=== PATIENT | female | born 1945 ===

== ENCOUNTER 2024-12-20 13:25 | Outpatient (AMB) | payer MEDICARE, SELFPAY ==
--- NOTE | 2024-12-20 13:42 | A.OFFVIS_ITS ---
Intake Visit Reasons: AFTER MR Allergies No Known Allergies Allergy (Verified 10/26/24 16:14) Medication List - Last Reconciled 12/20/24 by Lolly Cruz MD acitretin 17.5 mg PO DAILY atorvastatin 10 mg PO DAILY carvedilol 12.5 mg PO BID losartan 100 mg PO DAILY HPI Comments Details: This is a 78-year-old woman with a history of hypertension and hyperlipidemia who has had 4 or 5 falls in the last 6 months.? She used to walk with a cane but kept falling, so she is now using a walker but had another fall last week while using the walker at home.? She generally tends to fall backwards.? It is not related to loss of consciousness, dizziness or lightheadedness.? The knees do not buckle.? She suddenly loses her balance and falls backwards.? It is not related to quick movements or changing direction.? She has no bladder control problems.? There is no numbness and tingling in the legs.? She's been seen in the emergency room a few times after a fall and had CAT scans.? She had 3 weeks of rehabilitation home health aide with PT and OT as well. Had a fall in the bedroom a month ago. [facility] Medical History (Updated 12/20/24 @ 13:56 by Lolly Cruz MD) Cervical myelopathy Cerebral microvascular disease Carpal tunnel syndrome Review of Systems Const Details: ?Sleep:? Difficulty getting to sleepdenies.? Difficulty maintaining sleepdenies?.? Urge to move legsdenies.? Teeth grindingdenies.? Shouting or Kicking during sleep denies.? Abnormal behavior during sleepdenies.? Excessive sleepdenies.? Snoring denies.? Daytime sleepinessdenies. ???General/Constitutional:? Change in appetitedenies.? Chillsdenies.? Fatiguedenies.? Feverdenies.? Weight gaindenies.? Weight lossdenies. ???Ophthalmologic:? Blurred visiondenies.? Diminished visual acuitydenies. ???ENT:? Stuffinessdenies.? Decreased hearingdenies.? Dry mouthdenies.? Ear paindenies.? Nosebleeddenies.? Ringing in the earsdenies.? Sinus paindenies.? Sore throat denies.? Swollen glandsdenies. ???Endocrine:? Cold intolerancedenies.? Excessive thirstdenies.? Frequent urinationdenies.? Heat intolerancedenies. ???Respiratory:? Shortness of breathdenies.? Chest paindenies.? Coughdenies. ???Breast:? Breast lumpdenies.? Nipple dischargedenies. ???Cardiovascular:? Chest pain at restdenies.? Chest pain with exertiondenies.? Claudicationdenies .? Dizzinessdenies.? Fluid accumulation in the legsdenies.? Irregular heartbeat denies.? Palpitationsdenies. ???Gastrointestinal:? Abdominal paindenies.? Constipationdenies.? Diarrheadenies.? Difficulty swallowingdenies.? Heartburndenies.? Nauseadenies.? Rectal bleedingdenies. ???Hematology:? Easy bruisingdenies.? Prolonged bleedingdenies. ???Genitourinary:? Frequent urinationdenies.? Urgencydenies.? Incontinencedenies.? Erectile Dysfunctiondenies. ???Musculoskeletal:? Neck paindenies.? Back paindenies.? Muscle achesdenies.? Painful jointsdenies.? Sciaticadenies.? Weaknessdenies. ???Podiatric:? Difficulty walkingdenies.? Foot numbnessdenies. ???Neurologic:? Difficulty swallowingdenies.? Balance difficultydenies.? Coordinationnormal.? Difficulty speakingdenies.? Dizzinessdenies.? Faintingdenies.? Gait abnormality admits.? Headachedenies.? Loss of strengthdenies.? Loss of use of extremity denies.? Low back paindenies.? Memory lossdenies.? Seizuresdenies.? Ticsdenies.? Tingling/Numbnessdenies.? Transient loss of visiondenies.? Tremordenies. ???Psychiatric:? Anxietydenies.? Auditory/visual hallucinationsdenies.? Delusionsdenies.? Depressed mooddenies.? Stressorsdenies.? Substance abusedenies.? Suicidal thoughtsdenies. Physical Exam Neuro Other: Neurological: Abnormal neurological findings:??bilateral hyperreflexia in the lower extremities with equivocal extensor plantar responses Walks with a walker very slowly. Difficulty with eye movements, particularly left lateral gaze and saccades to the left.?Mental Status:??alert and oriented X 3,?Normal attention, orientation, memory and affect.?Cranial Nerves:??Pupils are equal, round and reactive to light. Fundoscopy shows normal disc bilaterally. External ocular movements are impaired as described above.?Visual escoto are full, no ptosis. Face is symmetrical, no facial weakness or droop. Facial sensations are normal. Tongue protrudes in midline. Palate elevates symmetrically. Shoulder shrugging is normal..?Motor Examination:??Normal muscle tone, bulk and strength,?No atrophy or fasciculations,?No drift of the extended upper extremities,?Deep tendon reflexes are 3+?,?Plantars are equivocal extensor.?Motor Strength:?Proximal Muscles (out of 5):5Distal Muscles (out of 5):5Neck Flexors (out of 5):5Neck Extensors (out of 5):5Deltoid (out of 5):5Biceps (out of 5):5Triceps (out of 5): 5Serratus Anterior (out of 5):5Wrist Extensors (out of 5):5APB (out of 5):5 Finger Spread (out of 5):5Ileopsoas (out of 5):5Quadriceps (out of 5):5 Hamstrings (out of 5):5Tibialis Anterior (out of 5):5Peronei (out of 5):5EDB (out of 5):5Gastrocnemius (out of 5):5Straight Leg Raising:??90 degrees.?Sensory Exam:??Normal light touch, temperature, pinprick, vibration and joint-position sensations?,?Rhomberg sign is absent.?Coordination:??no ataxia,?no titubation,?uunyca-ha-viww, tcob-esek-ubww test and rapid alternating movements were normal.?Gait Exam:??as above.?Cerebellar Signs:??Gekhdf-rb-xdxr and jspp-ma-rgol is normal,?no dysdiadochokinesia?.?Extrapyramidal System:??No tremor, rigidity with normal facial expressions,?No bradykinesia, no bradyphrenia. Normal arm swing and posture. No propulsion or retropulsion.?Speech:??Normal,?no dysphasia or dysarthria..? Mini Mental Status Exam: Level of Consciousness:??Alert.?Orientation:??Knows correct year, month, date, day and season,?Knows correct city, county and state. Knows correct location and floor.?Registration:??Able to register 3 objects.?Attention:??Serial 7's performed accurately.?Recall:??Able to recall 3 out of 3 objects.?Language:??Normal spontaneous speech, fluency, repetition,naming, comprehension, reading and writing.?Total Score:??30/30.? General Examination: GENERAL APPEARANCE:??normal,?in no acute distress.?HEAD:??normocephalic,?atraumatic.?EYES:??sclera non- icteric,?conjunctiva clear.?EARS:??auditory canal clear,?tympanic membrane intact, clear.?NOSE:??no lesions.?ORAL CAVITY:??gums normal,?mucosa moist,?no lesions.?THROAT:??clear.?NECK/THYROID:??no cervical lymphadenopathy,?thyroid normal,?neck supple, full range of motion,?no carotid bruit.?SKIN:??no rashes,?no significant birthmarks.?HEART:??S1, S2 normal,?no murmurs.?LUNGS:??clear anteriorly and posteriorly.?CHEST:??no gross rib deformity,?clear to auscultation.?BACK:??normal exam of spine.?EXTREMITIES:??no edema.?PERIPHERAL PULSES:??normal.?PSYCH:??alert, oriented,?cognitive function intact,?cooperative with exam.? Assessment & Plan Assessment & Plan (1) Cerebral microvascular disease: Comment: 02/03/24 MRI brain: Small chronic bilateral lacunar strokes in the cerebellum. Mild supratentorial white matter microvascular disease 11/29/2024 MRI of the cervical spine shows tcsb-pn-vvdnchks canal stenosis at C5-6-7 without clear cord compression. There is also facet hypertrophy with foraminal encroachment at C3-4 and C7-T1 Code(s): I67.89 - Other cerebrovascular disease Category: Medical (2) Cervical myelopathy: Comment: ? Multisystem atrophy Code(s): G95.9 - Disease of spinal cord, unspecified Category: Medical Plan Exercises for marching and gait and balance Coding Level of Care Code Est Pt Level 4 (21794) Diagnoses Cerebral microvascular disease I67.89 Cervical myelopathy G95.9
--- OUTSIDE RECORDS SUMMARY | 2024-12-20 14:17 | XMS_ITS | Encounter Summary ---
Author Organization [facility] Address [address] [place] [address] Care Team Providers Care Survey Research Teacher Name Role Phone Hay Fan MD Primary Care Provider [phone] Encounter Details Date Type Department Care Team (Late st Contact Info) Description 09/23/2024 Lab Requisition [facility] - Main Lab [address] [facility] [place] [address] Justyn Renee MD [address] [place] [address] Essential (primary) hypertension Social History Tobacco Use Types Packs/Day Years Used Date Smoking Tobacco: Never Assessed Comments Unknown Sex and Gender Information Value Date Recorded Sex Assigned at Not on file Legal Sex Female 11:08 AM EST Gender Identity Not on file Sexual Orientation Not on file documented as of this encounter Plan of Treatment Not on file documented as of this encounter Visit Diagnoses Diagnosis Essential (primary) hypertension Unspecified essential hypertension documented in this encounter Care Teams Survey Research Teacher Relationship Specialty Start Date End Date Hay Fan MD [address] [place] [address] PCP - General Internal Medicine 12/08/17 documented as of this encounter
--- OUTSIDE RECORDS SUMMARY | 2024-12-20 14:17 | XMS_ITS | Encounter Summary ---
Author Organization [facility] Address [address] [place] [address] Care Team Providers Care Cloak Room Attendant Name Role Phone Hay Fan MD Primary Care Provider [phone] Encounter Details Date Type Department Care Team (Late st Contact Info) Description 08/29/2024 Lab Requisition [facility] - Main Lab [address] [facility] [address] Justyn Renee MD [address] [place] [address] Essential (primary) hypertension; Hyperkalemia Social History Tobacco Use Types Packs/Day Years Used Date Smoking Tobacco: Never Assessed Comments Unknown Sex and Gender Information Value Date Recorded Sex Assigned at Not on file Legal Sex Female 11:08 AM EST Gender Identity Not on file Sexual Orientation Not on file documented as of this encounter Plan of Treatment Not on file documented as of this encounter Procedures Procedure Name Priority Date/Time Associated Diagnosis Comments BASIC METABOLIC PANEL Routine 08/30/2024 6:12 AM EDT Essential (primary) hypertension Hyperkalemia documented in this encounter Results * (ABNORMAL) Basic metabolic panel (08/30/2024 6:12 AM EDT) Sodium 127(L) 133 - 145 mmol/L LAB CHEMISTRY METHOD 08/30/2024 10:15 AM EDT [facility] Potassium 4.1 3.5 - 5.5 mmol/L LAB CHEMISTRY METHOD 08/30/2024 10:15 AM EDT [facility] Chloride 95(L) 96 - 110 mmol/L LAB CHEMISTRY METHOD 08/30/2024 10:15 AM [facility] CO2 24 21 - 32 mmol/L LAB CHEMISTRY METHOD 08/30/2024 10:15 AM [facility] Anion Gap 8 3 - 11 LAB CHEMISTRY METHOD 08/30/2024 10:15 AM [facility] Glucose 81 70 - 100 mg/dL LAB CHEMISTRY METHOD 08/30/2024 10:15 AM [facility] BUN 23 5 - 25 mg/dL LAB CHEMISTRY METHOD 08/30/2024 10:15 AM [facility] Creatinine 0.67 0.50 - 1.10 mg/dL LAB CHEMISTRY METHOD 08/30/2024 10:15 AM [facility] eGFR 88 >=60 mL/min/1. 73m2 LAB CHEMISTRY METHOD 08/30/2024 10:15 AM [facility] Comment:Calculation based on the Chronic Kidney Disease Epidemiology Collaboration (CKD-EPI) equation refit without adjustment for race. BUN/Creatinine Ratio 34.3 LAB CHEMISTRY METHOD 08/30/2024 10:15 AM [facility] Calcium 9.5 8.5 - 10.5 mg/dL LAB CHEMISTRY METHOD 08/30/2024 10:15 AM [facility] Blood Venous blood specimen / Unknown Venipuncture / Unknown 08/30/2024 6:12 AM EDT 08/30/2024 9:28 AM EDT us Justyn Renee MD LAB BLOOD ORDERABLES Final Result [facility] [address] [place] [address], documented in this encounter Visit Diagnoses Diagnosis Essential (primary) hypertension Unspecified essential hypertension Hyperkalemia Hyperpotassemia documented in this encounter Care Teams Cloak Room Attendant Relationship Specialty Start Date End Date Hay Fan MD [address] [place] [address] PCP - General Internal Medicine 12/08/17 documented as of this encounter
--- OUTSIDE RECORDS SUMMARY | 2024-12-20 14:17 | XMS_ITS | Encounter Summary ---
Author Organization [facility] Address [address] [place] [address] Care Team Providers Care Pallet Rectifier Name Role Phone Hay Fan MD Primary Care Provider Encounter Details Date Type Department Care Team (Late st Contact Info) Description 09/18/[address] [facility] - Main Lab [address] [place] [address] Justyn Renee MD [address] [place] [address] Essential (primary) hypertension Social History Tobacco Use [...] Procedure Name Priority Date/Time Associated Diagnosis Comments COMPLETE BLOOD COUNT Routine 09/19/2024 7:18 AM EDT Essential (primary) hypertension BASIC METABOLIC PANEL Routine 09/19/2024 7:18 AM EDT Essential (primary) hypertension documented in this encounter Results * Basic metabolic panel (09/19/2024 7:18 AM EDT) Sodium 136 133 - 145 mmol/L LAB CHEMISTRY METHOD 09/19/2024 10:[address] [facility] Potassium 4.6 3.5 - 5.5 mmol/L LAB CHEMISTRY METHOD 09/19/2024 10:[address] [facility] Chloride 106 96 - 110 mmol/L LAB CHEMISTRY METHOD 09/19/2024 10:50 AM [facility] CO2 24 21 - 32 mmol/L LAB CHEMISTRY METHOD 09/19/2024 10:50 AM [facility] Anion Gap 6 3 - 11 LAB CHEMISTRY METHOD 09/19/2024 10:50 AM [facility] Glucose 79 70 - 100 mg/dL LAB CHEMISTRY METHOD 09/19/2024 10:50 AM [facility] BUN 20 5 - 25 mg/dL LAB CHEMISTRY METHOD 09/19/2024 10:50 AM [facility] Creatinine 0.69 0.50 - 1.10 mg/dL LAB CHEMISTRY METHOD 09/19/2024 10:50 AM [facility] eGFR 88 >=60 mL/min/1. 73m2 LAB CHEMISTRY METHOD 09/19/2024 10:50 AM [facility] Comment:Calculation based on the Chronic Kidney Disease Epidemiology Collaboration (CKD-EPI) equation refit without adjustment for race. BUN/Creatinine Ratio 29.0 LAB CHEMISTRY METHOD 09/19/2024 10:50 AM [facility] Calcium 8.8 8.5 - 10.5 mg/dL LAB CHEMISTRY METHOD 09/19/2024 10:50 AM [facility] Blood Venous blood specimen / Unknown Venipuncture / Unknown 09/19/2024 7:18 AM EDT 09/19/2024 9:46 AM EDT us Justyn Renee MD LAB BLOOD ORDERABLES Final Result [facility] [address] [place] [address], * (ABNORMAL) Complete blood count (09/19/2024 7:18 AM EDT) WBC 8.5 4.8 - 10.8 K/mcL LAB HEMETOLOGY METHOD 09/19/2024 10:18 AM [facility] RBC 2.90(L) 3.80 - 4.80 M/mcL LAB HEMETOLOGY METHOD 09/19/2024 10:18 AM [facility] Hemoglobin 9.4(L) 11.5 - 16.0 g/dL LAB HEMETOLOGY METHOD 09/19/2024 10:18 AM [facility] Hematocrit 27.8(L) 35.0 - 47.0 % LAB HEMETOLOGY METHOD 09/19/2024 10:18 AM [facility] MCV 95.5 79.0 - 98.0 FL LAB HEMETOLOGY METHOD 09/19/2024 10:18 AM [facility] MCH 32.3(H) 27.0 - 32.0 pcg LAB HEMETOLOGY METHOD 09/19/2024 10:18 AM [facility] MCHC 33.8 32.0 - 37.0 g/dL LAB HEMETOLOGY METHOD 09/19/2024 10:18 AM [facility] RDW 12.0 11.0 - 15.0 % LAB HEMETOLOGY METHOD 09/19/2024 10:18 AM [facility] Platelets 429(H) 130 - 400 K/mcL LAB HEMETOLOGY METHOD 09/19/2024 10:18 AM [facility] MPV 8.8 7.0 - 11.0 FL LAB HEMETOLOGY METHOD 09/19/2024 10:18 AM [facility] NRBC 0.0 <1.0 % LAB HEMETOLOGY METHOD 09/19/2024 10:18 AM [facility] NRBC Absolute 0.00 <0.10 K/mcL LAB HEMETOLOGY METHOD 09/19/2024 10:[address] [facility] Blood Venous blood specimen / Unknown Venipuncture / Unknown 09/19/2024 7:18 AM EDT 09/19/2024 9:46 AM EDT us Justyn Renee MD LAB BLOOD ORDERABLES Final Result [facility] [address] [place] [address], documented in this encounter Visit Diagnoses Diagnosis Essential (primary) hypertension Unspecified essential hypertension documented in this encounter Care Teams Pallet Rectifier Relationship Specialty Start Date End Date Hay Fan MD [address] [facility] [place] [address] PCP - General Internal Medicine 12/08/17 documented as of this encounter
--- OUTSIDE RECORDS SUMMARY | 2024-12-20 14:17 | XMS_ITS | Encounter Summary ---
Author Organization [facility] Address [address] [place] [address] Care Team Providers Care Soil Expert Name Role Phone Hay Fan MD Primary Care Provider [phone] Encounter Details Date Type Department Care Team (Late st Contact Info) Description 08/24/2024 Lab Requisition [facility] - Main Lab [address] [facility] [place] [address] Justyn Renee MD [address] [place] [address] Essential (primary) hypertension; Repeated falls Social History Tobacco Use Types Packs/Day Years [...] Associated Diagnosis Comments COMPLETE BLOOD COUNT Routine 08/24/2024 9:05 AM EDT Essential (primary) hypertension Repeated falls THYROID STIMULATING HORMONE Routine 08/24/2024 9:05 AM EDT Essential (primary) hypertension Repeated falls FOLATE Routine 08/24/2024 9:05 AM EDT Essential (primary) hypertension Repeated falls VITAMIN B12 Routine 08/24/2024 9:05 AM EDT Essential (primary) hypertension Repeated falls BASIC METABOLIC PANEL Routine 08/24/2024 9:05 AM EDT Essential (primary) hypertension Repeated falls documented in this encounter Results * (ABNORMAL) Vitamin B12 (08/24/2024 9:05 AM EDT) Vitamin B-12 1,550(H) 250 - 900 pcg/mL LAB CHEMISTRY METHOD 08/24/2024 1:11 PM EDT [facility] Blood Venous blood specimen / Unknown Venipuncture / Unknown 08/24/2024 9:05 AM EDT 08/24/2024 11:44 AM EDT us Justyn Renee MD LAB BLOOD ORDERABLES Final Result [facility] [address] [place] [address], [place] [phone] * (ABNORMAL) Folate (08/24/2024 9:05 AM EDT) [facility] Folate >20.0(H) 2.8 - 17.0 ng/ml LAB CHEMISTRY METHOD 08/24/2024 1:11 PM EDT [facility] Blood Venous blood specimen / Unknown Venipuncture / Unknown 08/24/2024 9:05 AM EDT 08/24/2024 11:44 AM EDT us Justyn Renee MD LAB BLOOD ORDERABLES Final Result [facility] [address] [place] [address], [place] [phone] * Thyroid stimulating hormone (08/24/2024 9:05 AM EDT) Pathologist [facility] TSH 1.46 0.40 - 4.00 mcIU/mL LAB CHEMISTRY METHOD 08/24/2024 1:36 PM EDT [facility] Blood Venous blood specimen / Unknown Venipuncture / Unknown 08/24/2024 9:05 AM EDT 08/24/2024 11:44 AM EDT us Justyn Renee MD LAB BLOOD ORDERABLES Final Result [facility] [address] [place] [address], * (ABNORMAL) Basic metabolic panel (08/24/2024 9:05 AM EDT) Sodium 123(L) 133 - 145 mmol/L LAB CHEMISTRY METHOD 08/24/2024 12:48 PM EDT [facility] Potassium 3.6 3.5 - 5.5 mmol/L LAB CHEMISTRY METHOD 08/24/2024 12:[address] [facility] Chloride 87(L) 96 - 110 mmol/L LAB CHEMISTRY METHOD 08/24/2024 12:[address] [facility] CO2 26 21 - 32 mmol/L LAB CHEMISTRY METHOD 08/24/2024 12:[address] [facility] Anion Gap 10 3 - 11 LAB CHEMISTRY METHOD 08/24/2024 12:[address] [facility] Glucose 206(H) 70 - 100 mg/dL LAB CHEMISTRY METHOD 08/24/2024 12:[address] [facility] BUN 20 5 - 25 mg/dL LAB CHEMISTRY METHOD 08/24/2024 12:[address] [facility] Creatinine 0.78 0.50 - 1.10 mg/dL LAB CHEMISTRY METHOD 08/24/2024 12:[address] [facility] eGFR 77 >=60 mL/min/1. 73m2 LAB CHEMISTRY METHOD 08/24/2024 12:[address] [facility] Comment:Calculation based on the Chronic Kidney Disease Epidemiology Collaboration (CKD-EPI) equation refit without adjustment for race. BUN/Creatinine Ratio 25.6 LAB CHEMISTRY METHOD 08/24/2024 12:[address] [facility] Calcium 9.0 8.5 - 10.5 mg/dL LAB CHEMISTRY METHOD 08/24/2024 12:48 PM EDT [facility] Blood Venous blood specimen / Unknown Venipuncture / Unknown 08/24/2024 9:05 AM EDT 08/24/2024 11:44 AM EDT us Justyn Renee MD LAB BLOOD ORDERABLES Final Result [facility] [address] [place] [address], [place] [phone] * (ABNORMAL) Complete blood count (08/24/2024 9:05 AM EDT) WBC 10.1 4.8 - 10.8 K/mcL LAB HEMETOLOGY METHOD 08/24/2024 12:[address] [facility] RBC 3.40(L) 3.80 - 4.80 M/mcL LAB HEMETOLOGY METHOD 08/24/2024 12:[address] [facility] Hemoglobin 10.9(L) 11.5 - 16.0 g/dL LAB HEMETOLOGY METHOD 08/24/2024 12:[address] [facility] Hematocrit 30.8(L) 35.0 - 47.0 % LAB HEMETOLOGY METHOD 08/24/2024 12:[address] [facility] MCV 91.7 79.0 - 98.0 FL LAB HEMETOLOGY METHOD 08/24/2024 12:[address] [facility] MCH 32.4(H) 27.0 - 32.0 pcg LAB HEMETOLOGY METHOD 08/24/2024 12:[address] [facility] MCHC 35.4 32.0 - 37.0 g/dL LAB HEMETOLOGY METHOD 08/24/2024 12:[address] [facility] RDW 11.6 11.0 - 15.0 % LAB HEMETOLOGY METHOD 08/24/2024 12:23 PM EDT [facility] Platelets 395 130 - 400 K/mcL LAB HEMETOLOGY METHOD 08/24/2024 12:23 PM EDT [facility] MPV 9.3 7.0 - 11.0 FL LAB HEMETOLOGY METHOD 08/24/2024 12:23 PM EDT [facility] NRBC 0.0 <1.0 % LAB HEMETOLOGY METHOD 08/24/2024 12:23 PM EDT [facility] NRBC Absolute 0.00 <0.10 K/mcL [facility] 08/24/2024 12:23 PM EDT [facility] Blood Venous blood specimen / Unknown Venipuncture / Unknown 08/24/2024 9:05 AM EDT 08/24/2024 11:44 AM EDT us Justyn Renee MD LAB BLOOD ORDERABLES Final Result [facility] [address] [place] [address], documented in this encounter Visit Diagnoses Diagnosis Essential (primary) hypertension Unspecified essential hypertension Repeated falls documented in this encounter Care Teams Soil Expert Relationship Specialty Start Date End Date Hay Fan MD [address] [place] [address] PCP - General Internal Medicine 12/08/17 documented as of this encounter
--- OUTSIDE RECORDS SUMMARY | 2024-12-20 14:17 | XMS_ITS | Encounter Summary ---
Author Organization [facility] Address [address] [place] [address] Care Team Providers Care Double Head Machine Operator Name Role Phone Hay Fan MD Primary Care Provider [phone] Encounter Details Date Type Department Care Team (Late st Contact Info) Description 08/31/2024 Lab Requisition [facility] - Main Lab [address] [facility] [employer] [place] [address] Justyn Renee MD [address] [place] [id number] Social History Tobacco Use Types Packs/Day Years Used Date Smoking Tobacco: Never Assessed Comments Unknown Sex and Gender Information Value Date Recorded Sex Assigned at Not on file Legal Sex Female 11:08 AM EST Gender Identity Not on file Sexual Orientation Not on file documented as of this encounter Plan of Treatment Not on file documented as of this encounter Visit Diagnoses Not on filedocumented in this encounter Care Teams Double Head Machine Operator Relationship Specialty Start Date End Date Hay Fan MD [address] [place] [address] PCP - General Internal Medicine 12/08/17 documented as of this encounter
--- OUTSIDE RECORDS SUMMARY | 2024-12-20 14:17 | XMS_ITS | Encounter Summary ---
Author Organization [facility] Address [address] [place] [address] Care Team Providers Care Soft Work Wrapper Layer And Examiner Name Role Phone Hay Fan MD Primary Care Provider [phone] Encounter Details Date Type Department Care Team (Late st Contact Info) Description 09/12/2024 Lab Requisition [facility] - Main Lab [address] [place] [address] Justyn Renee MD [address] [place] [address] Hypo-osmolality and hyponatremia Social History Tobacco Use Types Packs/Day Years [...] Associated Diagnosis Comments BASIC METABOLIC PANEL Routine 09/13/2024 6:41 AM EDT Hypo-osmolality and hyponatremia documented in this encounter Results * (ABNORMAL) Basic metabolic panel (09/13/2024 6:41 AM EDT) Sodium 125(L) 133 - 145 mmol/L LAB CHEMISTRY METHOD 09/13/2024 9:51 AM EDT [facility] Potassium 4.2 3.5 - 5.5 mmol/L LAB CHEMISTRY METHOD 09/13/2024 9:51 AM EDT [facility] LAB Chloride 93(L) 96 - 110 mmol/L LAB CHEMISTRY METHOD 09/13/2024 9:51 AM [facility] LAB CO2 24 21 - 32 mmol/L LAB CHEMISTRY METHOD 09/13/2024 9:51 AM [facility] LAB Anion Gap 8 3 - 11 LAB CHEMISTRY METHOD 09/13/2024 9:51 AM [facility] LAB Glucose 85 70 - 100 mg/dL LAB CHEMISTRY METHOD 09/13/2024 9:51 AM [facility] BUN 25 5 - 25 mg/dL LAB CHEMISTRY METHOD 09/13/2024 9:51 AM [facility] LAB Creatinine 0.91 0.50 - 1.10 mg/dL LAB CHEMISTRY METHOD 09/13/2024 9:51 AM [facility] LAB eGFR 64 >=60 mL/min/1. 73m2 LAB CHEMISTRY METHOD 09/13/2024 9:51 AM [facility] LAB Comment:Calculation based on the Chronic Kidney Disease Epidemiology Collaboration (CKD-EPI) equation refit without adjustment for race. BUN/Creatinine Ratio 27.5 LAB CHEMISTRY METHOD 09/13/2024 9:51 AM [facility] Calcium 8.9 8.5 - 10.5 mg/dL LAB CHEMISTRY METHOD 09/13/2024 9:51 AM [facility] LAB Blood Venous blood specimen / Unknown Venipuncture / Unknown 09/13/2024 6:41 AM EDT 09/13/2024 8:08 AM EDT us Justyn Renee MD LAB BLOOD ORDERABLES Final Result [facility] LAB [address] [place] [address], documented in this encounter Visit Diagnoses Diagnosis Hypo-osmolality and hyponatremia documented in this encounter Care Teams Soft Work Wrapper Layer And Examiner Relationship Specialty Start Date End Date Hay Fan MD [address] [place] [address] PCP - General Internal Medicine 12/08/17 documented as of this encounter
--- OUTSIDE RECORDS SUMMARY | 2024-12-20 14:17 | XMS_ITS | Encounter Summary ---
Author Organization [facility] Address [address] [place] [address] Care Team Providers Care Box Chipper Name Role Phone Hay Fan MD Primary Care Provider [phone] Encounter Details Date Type Department Care Team (Late st Contact Info) Description 08/31/2024 Lab Requisition [facility] - Main Lab [address] [place] [address] Justyn Renee MD [address] [place] [address] Hypo-osmolality and hyponatremia Social History Tobacco Use [...] Associated Diagnosis Comments COMPLETE BLOOD COUNT Routine 09/01/2024 7:27 AM EDT Hypo-osmolality and hyponatremia BASIC METABOLIC PANEL Routine 09/01/2024 7:27 AM EDT Hypo-osmolality and hyponatremia documented in this encounter Results * (ABNORMAL) Complete blood count (09/01/2024 7:27 AM EDT) WBC 10.2 4.8 - 10.8 K/[facility] LAB HEMETOLOGY METHOD 09/01/2024 10:31 AM EDT [facility] RBC 3.40(L) 3.80 - 4.80 M/[facility] LAB HEMETOLOGY METHOD 09/01/2024 10:31 AM [facility] LAB Hemoglobin 10.9(L) 11.5 - 16.0 g/dL LAB HEMETOLOGY METHOD 09/01/2024 10:31 AM [facility] LAB Hematocrit 31.9(L) 35.0 - 47.0 % LAB HEMETOLOGY METHOD 09/01/2024 10:31 AM [facility] LAB MCV 93.5 79.0 - 98.0 FL LAB HEMETOLOGY METHOD 09/01/2024 10:31 AM [facility] LAB MCH 32.0 27.0 - 32.0 pcg LAB HEMETOLOGY METHOD 09/01/2024 10:31 AM [facility] LAB MCHC 34.2 32.0 - 37.0 g/dL LAB HEMETOLOGY METHOD 09/01/2024 10:31 AM [facility] LAB RDW 11.9 11.0 - 15.0 % LAB HEMETOLOGY METHOD 09/01/2024 10:31 AM [facility] LAB Platelets 550(H) 130 - 400 K/mcL LAB HEMETOLOGY METHOD 09/01/2024 10:31 AM [facility] LAB MPV 9.1 7.0 - 11.0 FL LAB HEMETOLOGY METHOD 09/01/2024 10:31 AM [facility] LAB NRBC 0.0 <1.0 % LAB HEMETOLOGY METHOD 09/01/2024 10:31 AM [facility] LAB NRBC Absolute 0.00 <0.10 K/mcL LAB HEMETOLOGY METHOD 09/01/2024 10:31 AM [facility] LAB Blood Venous blood specimen / Unknown Venipuncture / Unknown 09/01/2024 7:27 AM EDT 09/01/2024 10:18 AM EDT us Justyn B Jagadeesan MD LAB BLOOD ORDERABLES Final Result [facility] [address] [place] [address], * (ABNORMAL) Basic metabolic panel (09/01/2024 7:27 AM EDT) Sodium 128(L) 133 - 145 mmol/L LAB CHEMISTRY METHOD 09/01/2024 11:24 AM [facility] Potassium 4.5 3.5 - 5.5 mmol/L LAB CHEMISTRY METHOD 09/01/2024 11:24 AM [facility] LAB Chloride 97 96 - 110 mmol/L LAB CHEMISTRY METHOD 09/01/2024 11:24 AM [facility] CO2 26 21 - 32 mmol/L LAB CHEMISTRY METHOD 09/01/2024 11:24 AM [facility] LAB Anion Gap 5 3 - 11 LAB CHEMISTRY METHOD 09/01/2024 11:24 AM [facility] Glucose 96 70 - 100 mg/dL LAB CHEMISTRY METHOD 09/01/2024 11:24 AM [facility] BUN 28(H) 5 - 25 mg/dL LAB CHEMISTRY METHOD 09/01/2024 11:24 AM [facility] Creatinine 0.70 0.50 - 1.10 mg/dL LAB CHEMISTRY METHOD 09/01/2024 11:24 AM [facility] LAB eGFR 88 >=60 mL/min/1. 73m2 LAB CHEMISTRY METHOD 09/01/2024 11:24 AM [facility] LAB Comment:Calculation based on the Chronic Kidney Disease Epidemiology Collaboration (CKD-EPI) equation refit without adjustment for race. BUN/Creatinine Ratio 40.0 LAB CHEMISTRY METHOD 09/01/2024 11:24 AM [facility] Calcium 10.0 8.5 - 10.5 mg/dL LAB CHEMISTRY METHOD 09/01/2024 11:24 AM EDT [facility] Blood Venous blood specimen / Unknown Venipuncture / Unknown 09/01/2024 7:27 AM EDT 09/01/2024 10:15 AM EDT us Justyn Renee MD LAB BLOOD ORDERABLES Final Result [facility] [address] [place] [address], documented in this encounter Visit Diagnoses Diagnosis Hypo-osmolality and hyponatremia documented in this encounter Care Teams Box Chipper Relationship Specialty Start Date End Date Hay Fan [facility] [address] [facility] [address] PCP - General Internal Medicine 12/08/17 documented as of this encounter
--- OUTSIDE RECORDS SUMMARY | 2024-12-20 14:17 | XMS_ITS | Encounter Summary ---
Author Organization [facility] Address [address] [place] [address] Care Team Providers Care Teacher Physically Impaired Name Role Phone Hay Fan MD Primary Care Provider Encounter Details Date Type Department Care Team (Late st Contact Info) Description 08/27/2024 Lab Requisition [facility] Lab [address] [place] [address] Justyn Renee MD [address] [place] [address] Essential (primary) hypertension Social History Tobacco Use [...] Associated Diagnosis Comments COMPLETE BLOOD COUNT Routine 08/28/2024 7:34 AM EDT Essential (primary) hypertension BASIC METABOLIC PANEL Routine 08/28/2024 7:34 AM EDT Essential (primary) hypertension documented in this encounter Results * (ABNORMAL) Basic metabolic panel (08/28/2024 7:34 AM EDT) Sodium 126(L) 133 - 145 mmol/L LAB CHEMISTRY METHOD 08/28/2024 11:18 AM EDT [facility] Potassium 3.7 3.5 - 5.5 mmol/L LAB CHEMISTRY METHOD 08/28/2024 11:18 AM EDT [facility] Chloride 92(L) 96 - 110 mmol/L LAB CHEMISTRY METHOD 08/28/2024 11:18 AM EDT [facility] CO2 23 21 - 32 mmol/L LAB CHEMISTRY METHOD 08/28/2024 11:18 AM [facility] LAB Anion Gap 11 3 - 11 LAB CHEMISTRY METHOD 08/28/2024 11:18 AM [facility] LAB Glucose 89 70 - 100 mg/dL LAB CHEMISTRY METHOD 08/28/2024 11:18 AM [facility] BUN 18 5 - 25 mg/dL LAB CHEMISTRY METHOD 08/28/2024 11:18 AM [facility] Creatinine 0.57 0.50 - 1.10 mg/dL LAB CHEMISTRY METHOD 08/28/2024 11:18 AM [facility] LAB eGFR 92 >=60 mL/min/1. 73m2 LAB CHEMISTRY METHOD 08/28/2024 11:18 AM [facility] LAB Comment:Calculation based on the Chronic Kidney Disease Epidemiology Collaboration (CKD-EPI) equation refit without adjustment for race. BUN/Creatinine Ratio 31.6 LAB CHEMISTRY METHOD 08/28/2024 11:18 AM [facility] LAB Calcium 9.1 8.5 - 10.5 mg/dL LAB CHEMISTRY METHOD 08/28/2024 11:18 AM [facility] Blood Venous blood specimen / Unknown Venipuncture / Unknown 08/28/2024 7:34 AM EDT 08/28/2024 10:32 AM EDT us Justyn Renee MD LAB BLOOD ORDERABLES Final Result [facility] [address] [place] [address], * (ABNORMAL) Complete blood count (08/28/2024 7:34 AM EDT) WBC 10.8 4.8 - 10.8 K/mcL LAB HEMETOLOGY METHOD 08/28/2024 10:55 AM [facility] LAB RBC 3.00(L) 3.80 - 4.80 M/mcL LAB HEMETOLOGY METHOD 08/28/2024 10:55 AM [facility] Hemoglobin 9.5(L) 11.5 - 16.0 g/dL LAB HEMETOLOGY METHOD 08/28/2024 10:55 AM [facility] LAB Hematocrit 26.8(L) 35.0 - 47.0 % LAB HEMETOLOGY METHOD 08/28/2024 10:55 AM [facility] LAB MCV 90.8 79.0 - 98.0 FL LAB HEMETOLOGY METHOD 08/28/2024 10:55 AM [facility] LAB MCH 32.2(H) 27.0 - 32.0 pcg LAB HEMETOLOGY METHOD 08/28/2024 10:55 AM [facility] LAB MCHC 35.4 32.0 - 37.0 g/dL LAB HEMETOLOGY METHOD 08/28/2024 10:55 AM [facility] LAB RDW 11.6 11.0 - 15.0 % LAB HEMETOLOGY METHOD 08/28/2024 10:55 AM [facility] LAB Platelets 420(H) 130 - 400 K/mcL LAB HEMETOLOGY METHOD 08/28/2024 10:55 AM [facility] LAB MPV 9.4 7.0 - 11.0 FL LAB HEMETOLOGY METHOD 08/28/2024 10:55 AM [facility] LAB NRBC 0.0 <1.0 % LAB HEMETOLOGY METHOD 08/28/2024 10:55 AM [facility] LAB NRBC Absolute 0.00 <0.10 K/mcL LAB HEMETOLOGY METHOD 08/28/2024 10:55 AM EDT [facility] Blood Venous blood specimen / Unknown Venipuncture / Unknown 08/28/2024 7:34 AM EDT 08/28/2024 10:32 AM EDT us Justyn Renee MD LAB BLOOD ORDERABLES Final Result [facility] [address] [place] [address], documented in this encounter Visit Diagnoses Diagnosis Essential (primary) hypertension Unspecified essential hypertension documented in this encounter Care Teams Teacher Physically Impaired Relationship Specialty Start Date End Date Hay Fan MD [address] [place] [address] PCP - General Internal Medicine 12/08/17 documented as of this encounter
--- OUTSIDE RECORDS SUMMARY | 2024-12-20 14:17 | XMS_ITS | Encounter Summary ---
Author Organization [facility] Address [address] [place] [address] Care Team Providers Care Librarian Special Collections Name Role Phone Hay Fan MD Primary Care Provider [phone] Encounter Details Date Type Department Care Team (Late st Contact Info) Description 08/26/2024 Lab Requisition [facility] - Main Lab [address] [place] [address] Justyn Renee MD [address] [place] [address] Wedge compression fracture of unspecified lumbar vertebra, subsequent encounter for fracture with routine healing; Retention of urine, unspecified; Hyperlipidemia, unspecified Social History Tobacco Use Types Packs/Day Years [...] Associated Diagnosis Comments BASIC METABOLIC PANEL Routine 08/26/2024 7:50 AM EDT Wedge compression fracture of unspecified lumbar vertebra, subsequent encounter for fracture with routine healing Retention of urine, unspecified Hyperlipidemia, unspecified documented in this encounter Results * (ABNORMAL) Basic metabolic panel (08/26/2024 7:50 AM EDT) Sodium 124(L) 133 - 145 mmol/L LAB CHEMISTRY METHOD 08/26/2024 10:39 AM EDT [facility] Potassium 3.7 3.5 - 5.5 mmol/L LAB CHEMISTRY METHOD 08/26/2024 10:39 AM [facility] Chloride 89(L) 96 - 110 mmol/L LAB CHEMISTRY METHOD 08/26/2024 10:39 AM [facility] LAB CO2 27 21 - 32 mmol/L LAB CHEMISTRY METHOD 08/26/2024 10:39 AM [facility] LAB Anion Gap 8 3 - 11 LAB CHEMISTRY METHOD 08/26/2024 10:39 AM [facility] LAB Glucose 98 70 - 100 mg/dL LAB CHEMISTRY METHOD 08/26/2024 10:39 AM [facility] BUN 33(H) 5 - 25 mg/dL LAB CHEMISTRY METHOD 08/26/2024 10:39 AM [facility] LAB Creatinine 0.73 0.50 - 1.10 mg/dL LAB CHEMISTRY METHOD 08/26/2024 10:39 AM [facility] LAB eGFR 83 >=60 mL/min/1. 73m2 LAB CHEMISTRY METHOD 08/26/2024 10:39 AM [facility] LAB Comment:Calculation based on the Chronic Kidney Disease Epidemiology Collaboration (CKD-EPI) equation refit without adjustment for race. BUN/Creatinine Ratio 45.2 LAB CHEMISTRY METHOD 08/26/2024 10:39 AM [facility] Calcium 10.5 8.5 - 10.5 mg/dL LAB CHEMISTRY METHOD 08/26/2024 10:39 AM [facility] Blood Venous blood specimen / Unknown Venipuncture / Unknown 08/26/2024 7:50 AM EDT 08/26/2024 9:27 AM EDT us Justyn Renee MD LAB BLOOD ORDERABLES Final Result [facility] [address] [place] [address], [place] [phone] documented in this encounter Visit Diagnoses Diagnosis Wedge compression fracture of unspecified lumbar vertebra, subsequent encounter for fracture with routine healing Retention of urine, unspecified Hyperlipidemia, unspecified documented in this encounter Care Teams Librarian Special Collections Relationship Specialty Start Date End Date Hay Fan MD [address] [facility] [place] [address] PCP - General Internal Medicine 12/08/17 documented as of this encounter
--- OUTSIDE RECORDS SUMMARY | 2024-12-20 14:17 | XMS_ITS | Encounter Summary ---
Author Organization [facility] Address [address] [place] [address] Care Team Providers Care Dry Cure Worker Name Role Phone Hay Fan MD Primary Care Provider [phone] Encounter Details Date Type Department Care Team (Late st Contact Info) Description 09/14/2024 Lab Requisition [facility] - Main Lab [address] [facility] [place] [address] Justyn Renee MD [address] [place] [address] Hypo-osmolality and hyponatremia Social History Tobacco Use [...] Associated Diagnosis Comments BASIC METABOLIC PANEL Routine 09/15/2024 6:56 AM EDT Hypo-osmolality and hyponatremia documented in this encounter Results * (ABNORMAL) Basic metabolic panel (09/15/2024 6:56 AM EDT) Sodium 130(L) 133 - 145 mmol/L LAB CHEMISTRY METHOD 09/15/2024 9:38 AM EDT [facility] Potassium 4.6 3.5 - 5.5 mmol/L LAB CHEMISTRY METHOD 09/15/2024 9:38 AM EDT [facility] Chloride 100 96 - 110 mmol/L LAB CHEMISTRY METHOD 09/15/2024 9:38 AM EDT [facility] CO2 24 21 - 32 mmol/L LAB CHEMISTRY METHOD 09/15/2024 9:38 AM [facility] Anion Gap 6 3 - 11 LAB CHEMISTRY METHOD 09/15/2024 9:38 AM [facility] LAB Glucose 84 70 - 100 mg/dL LAB CHEMISTRY METHOD 09/15/2024 9:38 AM [facility] BUN 22 5 - 25 mg/dL LAB CHEMISTRY METHOD 09/15/2024 9:38 AM [facility] Creatinine 0.64 0.50 - 1.10 mg/dL LAB CHEMISTRY METHOD 09/15/2024 9:38 AM [facility] LAB eGFR 89 >=60 mL/min/1. 73m2 LAB CHEMISTRY METHOD 09/15/2024 9:38 AM [facility] LAB Comment:Calculation based on the Chronic Kidney Disease Epidemiology Collaboration (CKD-EPI) equation refit without adjustment for race. BUN/Creatinine Ratio 34.4 LAB CHEMISTRY METHOD 09/15/2024 9:38 AM [facility] LAB Calcium 9.2 8.5 - 10.5 mg/dL LAB CHEMISTRY METHOD 09/15/2024 9:38 AM [facility] LAB Blood Venous blood specimen / Unknown Venipuncture / Unknown 09/15/2024 6:56 AM EDT 09/15/2024 8:28 AM EDT us Justny Renee MD LAB BLOOD ORDERABLES Final Result [facility] [address] [place] [address], documented in this encounter Visit Diagnoses Diagnosis Hypo-osmolality and hyponatremia documented in this encounter Care Teams Dry Cure Worker Relationship Specialty Start Date End Date Hay Fan MD [address] [place] [address] PCP - General Internal Medicine 12/08/17 documented as of this encounter
--- OUTSIDE RECORDS SUMMARY | 2024-12-20 14:17 | XMS_ITS | Encounter Summary ---
Author Organization [facility] Address [address] [place] [address] Care Team Providers Care Relationship Consultant Name Role Phone Hay Fan MD Primary Care Provider [phone] Encounter Details Date Type Department Care Team (Late st Contact Info) Description 09/10/2024 Lab Requisition [facility] Lab [address] [place] [address] Justyn Renee MD [address] [place] [address] Essential (primary) hypertension Social History Tobacco Use [...] Associated Diagnosis Comments COMPLETE BLOOD COUNT Routine 09/11/2024 6:53 AM EDT Essential (primary) hypertension BASIC METABOLIC PANEL Routine 09/11/2024 6:53 AM EDT Essential (primary) hypertension documented in this encounter Results * (ABNORMAL) Basic metabolic panel (09/11/2024 6:53 AM EDT) Sodium 124(L) 133 - 145 mmol/L LAB CHEMISTRY METHOD 09/11/2024 9:32 AM EDT [facility] Potassium 4.3 3.5 - 5.5 mmol/L LAB CHEMISTRY METHOD 09/11/2024 9:32 AM EDT [facility] Chloride 92(L) 96 - 110 mmol/L LAB CHEMISTRY METHOD 09/11/2024 9:32 AM EDT [facility] CO2 26 21 - 32 mmol/L LAB CHEMISTRY METHOD 09/11/2024 9:32 AM [facility] Anion Gap 6 3 - 11 LAB CHEMISTRY METHOD 09/11/2024 9:32 AM T [facility] Glucose 83 70 - 100 mg/dL LAB CHEMISTRY METHOD 09/11/2024 9:32 AM [facility] BUN 24 5 - 25 mg/dL LAB CHEMISTRY METHOD 09/11/2024 9:32 AM [facility] Creatinine 0.86 0.50 - 1.10 mg/dL LAB CHEMISTRY METHOD 09/11/2024 9:32 AM [facility] LAB eGFR 68 >=60 mL/min/1. 73m2 LAB CHEMISTRY METHOD 09/11/2024 9:32 AM T [facility] LAB Comment:Calculation based on the Chronic Kidney Disease Epidemiology Collaboration (CKD-EPI) equation refit without adjustment for race. BUN/Creatinine Ratio 27.9 LAB CHEMISTRY METHOD 09/11/2024 9:32 AM [facility] Calcium 9.5 8.5 - 10.5 mg/dL LAB CHEMISTRY METHOD 09/11/2024 9:32 AM [facility] Blood Venous blood specimen / Unknown Venipuncture / Unknown 09/11/2024 6:53 AM EDT 09/11/2024 9:00 AM EDT us Justyn Renee MD LAB BLOOD ORDERABLES Final Result [facility] [address] [place] [address], * (ABNORMAL) Complete blood count (09/11/2024 6:53 AM EDT) WBC 9.1 4.8 - 10.8 K/mcL LAB HEMETOLOGY METHOD 09/11/2024 9:13 AM [facility] RBC 3.10(L) 3.80 - 4.80 M/mcL LAB HEMETOLOGY METHOD 09/11/2024 9:13 AM [facility] Hemoglobin 9.9(L) 11.5 - 16.0 g/dL LAB HEMETOLOGY METHOD 09/11/2024 9:13 AM [facility] Hematocrit 28.4(L) 35.0 - 47.0 % LAB HEMETOLOGY METHOD 09/11/2024 9:13 AM [facility] MCV 91.9 79.0 - 98.0 FL LAB HEMETOLOGY METHOD 09/11/2024 9:13 AM [facility] MCH 32.0 27.0 - 32.0 pcg LAB HEMETOLOGY METHOD 09/11/2024 9:13 AM [facility] MCHC 34.9 32.0 - 37.0 g/dL LAB HEMETOLOGY METHOD 09/11/2024 9:13 AM [facility] RDW 11.6 11.0 - 15.0 % LAB HEMETOLOGY METHOD 09/11/2024 9:13 AM [facility] Platelets 467(H) 130 - 400 K/[facility] LAB HEMETOLOGY METHOD 09/11/2024 9:13 AM [facility] MPV 9.1 7.0 - 11.0 FL LAB HEMETOLOGY METHOD 09/11/2024 9:13 AM [facility] NRBC 0.0 <1.0 % LAB HEMETOLOGY METHOD 09/11/2024 9:13 AM [facility] NRBC Absolute 0.00 <0.10 K/mcL LAB HEMETOLOGY METHOD 09/11/2024 9:13 AM EDT [facility] Blood Venous blood specimen / Unknown Venipuncture / Unknown 09/11/2024 6:53 AM EDT 09/11/2024 9:00 AM EDT us Justyn Renee MD LAB BLOOD ORDERABLES Final Result [facility] [address] [place] [address], documented in this encounter Visit Diagnoses Diagnosis Essential (primary) hypertension Unspecified essential hypertension documented in this encounter Care Teams Relationship Consultant Relationship Specialty Start Date End Date Hay Fan MD [address] [place] [address] PCP - General Internal Medicine 12/08/17 documented as of this encounter
--- OUTSIDE RECORDS SUMMARY | 2024-12-20 14:17 | XMS_ITS | Encounter Summary ---
Author Organization [facility] Address [address] [place] [address] Care Team Providers Care Associate Professor Of Counseling Name Role Phone Hay Fan MD Primary Care Provider Encounter Details Date Type Department Care Team (Late st Contact Info) Description 09/03/2024 Lab Requisition [facility] Lab [address] [place] [address] Justyn Renee MD [address] [place] [address] Essential (primary) hypertension Social History Tobacco Use [...] Associated Diagnosis Comments COMPLETE BLOOD COUNT Routine 09/04/2024 7:15 AM EDT Essential (primary) hypertension BASIC METABOLIC PANEL Routine 09/04/2024 7:15 AM EDT Essential (primary) hypertension documented in this encounter Results * (ABNORMAL) Basic metabolic panel (09/04/2024 7:15 AM EDT) Sodium 131(L) 133 - 145 mmol/L LAB CHEMISTRY METHOD 09/04/2024 10:47 AM EDT [facility] Potassium 4.4 3.5 - 5.5 mmol/L LAB CHEMISTRY METHOD 09/04/2024 10:47 AM EDT [facility] Chloride 98 96 - 110 mmol/L LAB CHEMISTRY METHOD 09/04/2024 10:47 AM [facility] CO2 23 21 - 32 mmol/L LAB CHEMISTRY METHOD 09/04/2024 10:47 AM [facility] Anion Gap 10 3 - 11 LAB CHEMISTRY METHOD 09/04/2024 10:47 AM [facility] Glucose 83 70 - 100 mg/dL LAB CHEMISTRY METHOD 09/04/2024 10:47 AM [facility] BUN 28(H) 5 - 25 mg/dL LAB CHEMISTRY METHOD 09/04/2024 10:47 AM [facility] Creatinine 0.81 0.50 - 1.10 mg/dL LAB CHEMISTRY METHOD 09/04/2024 10:47 AM [facility] eGFR 73 >=60 mL/min/1. 73m2 LAB CHEMISTRY METHOD 09/04/2024 10:47 AM [facility] Comment:Calculation based on the Chronic Kidney Disease Epidemiology Collaboration (CKD-EPI) equation refit without adjustment for race. BUN/Creatinine Ratio 34.6 LAB CHEMISTRY METHOD 09/04/2024 10:47 AM [facility] Calcium 8.9 8.5 - 10.5 mg/dL LAB CHEMISTRY METHOD 09/04/2024 10:47 AM [facility] Blood Venous blood specimen / Unknown Venipuncture / Unknown 09/04/2024 7:15 AM EDT 09/04/2024 9:38 AM EDT us Justyn Renee MD LAB BLOOD ORDERABLES Final Result [facility] [address] [place] [address], [place] [phone] * (ABNORMAL) Complete blood count (09/04/2024 7:15 AM EDT) WBC 9.5 4.8 - 10.8 K/mcL LAB HEMETOLOGY METHOD 09/04/2024 10:04 AM [facility] RBC 3.10(L) 3.80 - 4.80 M/mcL LAB HEMETOLOGY METHOD 09/04/2024 10:04 AM [facility] Hemoglobin 9.7(L) 11.5 - 16.0 g/dL LAB HEMETOLOGY METHOD 09/04/2024 10:04 AM [facility] Hematocrit 28.3(L) 35.0 - 47.0 % LAB HEMETOLOGY METHOD 09/04/2024 10:04 AM [facility] MCV 92.8 79.0 - 98.0 FL LAB HEMETOLOGY METHOD 09/04/2024 10:04 AM [facility] MCH 31.8 27.0 - 32.0 pcg LAB HEMETOLOGY METHOD 09/04/2024 10:04 AM [facility] MCHC 34.3 32.0 - 37.0 g/dL LAB HEMETOLOGY METHOD 09/04/2024 10:04 AM [facility] RDW 12.0 11.0 - 15.0 % LAB HEMETOLOGY METHOD 09/04/2024 10:04 AM [facility] Platelets 486(H) 130 - 400 K/mcL LAB HEMETOLOGY METHOD 09/04/2024 10:04 AM [facility] MPV 8.8 7.0 - 11.0 FL LAB HEMETOLOGY METHOD 09/04/2024 10:04 AM [facility] NRBC 0.0 <1.0 % LAB HEMETOLOGY METHOD 09/04/2024 10:04 AM [facility] NRBC Absolute 0.00 <0.10 K/mcL LAB HEMETOLOGY METHOD 09/04/2024 10:04 AM EDT [facility] Blood Venous blood specimen / Unknown Venipuncture / Unknown 09/04/2024 7:15 AM EDT 09/04/2024 9:38 AM EDT us Justyn Renee MD LAB BLOOD ORDERABLES Final Result [facility] [address] [place] [address], documented in this encounter Visit Diagnoses Diagnosis Essential (primary) hypertension Unspecified essential hypertension documented in this encounter Care Teams Associate Professor Of Counseling Relationship Specialty Start Date End Date [facility] Fan [facility] [address] [facility] [phone] PCP - General Internal Medicine 12/08/17 documented as of this encounter
--- OUTSIDE RECORDS SUMMARY | 2024-12-20 14:17 | XMS_ITS | Clinical Summary ---
Author Organization [address] 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 Name Role Phone Hay Fan MD Primary Care Provider [phone] Encounters Date Type Department Care Team Description 09/23/2024 Lab Requisition [facility] Lab [address] [place] [phone] Justyn Renee MD Essential (primary) hypertension 09/18/2024 Lab Requisition [facility] Lab [address] [place] [phone] Justyn Renee MD Essential (primary) hypertension from Last 3 Months Social History Tobacco Use Types Packs/Day Years Used Date Smoking Tobacco: Never Assessed Comments Unknown Sex and Gender Information Value Date Recorded Sex Assigned at Not on file Legal Sex Female 11:08 AM EST Gender Identity Not on file Sexual Orientation Not on file Plan of Treatment Health Maintenance Due Date Last Done Comments Pneumococcal Vaccine: 50+ Years (2 of 2 - PCV) 06/12/2010 06/12/2009 Zoster Vaccines (2 of 3) 03/06/2014 01/09/2014 DTaP,Tdap,and Td Vaccines (2 - Td or Tdap) 07/03/2018 07/03/2008 RSV Immunization Adult Patients (1 - 1-dose 75+ series) 12/08/2018 COVID-19 Vaccine ( - season) 2023 Depression Screening 04/26/2024 Cholesterol Screening (Lipid Panel) 08/25/2024 Falls Risk Assessment 08/25/2024 Osteoporosis Screening (Bone Density Screening) 08/25/2024 Social Influencers of Health Screening 08/25/2024 Influenza Vaccine (#1) 2024 5, 02/13/2014, 04/11/2012, Additional history exists Hypertension/CHF/CAD Annual BMP Blood Test 09/19/2025 09/19/2024, 09/15/2024, 09/13/2024, Additional history exists HIB Vaccines Aged Out No longer eligi ble based on patient's age to complete this topic HPV Vaccines Aged Out No longer eligi ble based on patient's age to complete this topic Hepatitis A Vaccines Aged Out No long er eligible based on patient's age to complete this topic Hepatitis B Vaccines Aged Out No long er eligible based on patient's age to complete this topic IPV Vaccines Aged Out No longer eligi ble based on patient's age to complete this topic MMR Vaccines Aged Out No longer eligi ble based on patient's age to complete this topic Meningococcal ACWY Vaccine Aged Out N o longer eligible based on patient's age to complete this topic Meningococcal B Vaccine Aged Out No l onger eligible based on patient's age to complete this topic RSV Immunization Patients Under 20 months Aged Out No longer eligible based on patient's age to complete this topic Varicella Vaccines Aged Out No longer eligible based on patient's age to complete this topic Procedures Procedure Name Priority Date/Time Associated Diagnosis Comments BASIC METABOLIC PANEL Routine 09/19/2024 7:18 AM EDT Essential (primary) hypertension COMPLETE BLOOD COUNT Routine 09/19/2024 7:18 AM EDT Essential (primary) hypertension from Last 3 Months Results * (ABNORMAL) Complete blood count (09/19/2024 7:18 AM EDT) [facility] Signature WBC 8.5 4.8 - 10.8 K/mcL LAB HEMETOLOGY METHOD 09/19/2024 10:18 AM EDT [facility] RBC 2.90(L) 3.80 - 4.80 M/mcL LAB HEMETOLOGY METHOD 09/19/2024 10:18 AM EDT [facility] Hemoglobin 9.4(L) 11.5 - 16.0 g/dL LAB HEMETOLOGY METHOD 09/19/2024 10:18 AM EDT [facility] Hematocrit 27.8(L) 35.0 - 47.0 % LAB HEMETOLOGY METHOD 09/19/2024 10:18 AM EDT [facility] MCV 95.5 79.0 - 98.0 FL LAB HEMETOLOGY METHOD 09/19/2024 10:18 AM EDT [facility] MCH 32.3(H) 27.0 - 32.0 pcg LAB HEMETOLOGY METHOD 09/19/2024 10:18 AM EDT [facility] MCHC 33.8 32.0 - 37.0 g/dL LAB HEMETOLOGY METHOD 09/19/2024 10:18 AM EDT [facility] RDW 12.0 11.0 - 15.0 % LAB HEMETOLOGY METHOD 09/19/2024 10:18 AM EDT [facility] Platelets 429(H) 130 - 400 K/mcL LAB HEMETOLOGY METHOD 09/19/2024 10:18 AM EDT [facility] MPV 8.8 7.0 - 11.0 FL LAB HEMETOLOGY METHOD 09/19/2024 10:18 AM EDT [facility] NRBC 0.0 <1.0 % LAB HEMETOLOGY METHOD 09/19/2024 10:18 AM EDT [facility] NRBC Absolute 0.00 <0.10 K/mcL LAB HEMETOLOGY METHOD 09/19/2024 10:18 AM EDT [facility] Blood Venous blood specimen / Unknown Venipuncture / Unknown 09/19/2024 7:18 AM EDT 09/19/2024 9:46 AM EDT us Justyn Renee MD LAB BLOOD ORDERABLES Final Result [facility] [address] [place] [address], [place] [phone] * Basic metabolic panel (09/19/2024 7:18 AM EDT) Sodium 136 133 - 145 mmol/L LAB CHEMISTRY METHOD 09/19/2024 10:[address] [facility] Potassium 4.6 3.5 - 5.5 mmol/L LAB CHEMISTRY METHOD 09/19/2024 10:[address] [facility] Chloride 106 96 - 110 mmol/L LAB CHEMISTRY METHOD 09/19/2024 10:[address] [facility] CO2 24 21 - 32 mmol/L LAB CHEMISTRY METHOD 09/19/2024 10:[address] [facility] Anion Gap 6 3 - 11 LAB CHEMISTRY METHOD 09/19/2024 10:[address] [facility] Glucose 79 70 - 100 mg/dL LAB CHEMISTRY METHOD 09/19/2024 10:[address] [facility] BUN 20 5 - 25 mg/dL LAB CHEMISTRY METHOD 09/19/2024 10:[address] [facility] Creatinine 0.69 0.50 - 1.10 mg/dL LAB CHEMISTRY METHOD 09/19/2024 10:[address] [facility] eGFR 88 >=60 mL/min/1. 73m2 LAB CHEMISTRY METHOD 09/19/2024 10:[address] [facility] Comment:Calculation based on the Chronic Kidney Disease Epidemiology Collaboration (CKD-EPI) equation refit without adjustment for race. BUN/Creatinine Ratio 29.0 LAB CHEMISTRY METHOD 09/19/2024 10:[address] [facility] Calcium 8.8 8.5 - 10.5 mg/dL LAB CHEMISTRY METHOD 09/19/2024 10:[address] [facility] Blood Venous blood specimen / Unknown Venipuncture / Unknown 09/19/2024 7:18 AM EDT 09/19/2024 9:46 AM EDT us Justyn Renee MD LAB BLOOD ORDERABLES Final Result [facility] [address] [place] [address], from Last 3 Months Insurance [facility] Care Teams Laminating Machine Operator Helper Relationship Specialty Start Date End Date Hay Fan MD [address] [place] [phone] PCP - General Internal Medicine 12/08/17
== END 2024-12-20 14:03 | disposition home or self-care (01) ==
PROVIDERS: PCP Internal Medicine; Visit Provider Psychiatry & Neurology Neurology
DX: I67.89 Other cerebrovascular disease (principal); G95.9 Disease of spinal cord, unspecified
CPT/HCPCS: 99214

== ENCOUNTER → 2024-12-20 13:25 | Outpatient (BNVA) | payer MEDICARE, SELFPAY | PROVIDERS: PCP Internal Medicine; Visit Provider Psychiatry & Neurology Neurology | DX: I67.89 Other cerebrovascular disease (principal); G95.9 Disease of spinal cord, unspecified | CPT/HCPCS: 99212 ==

== ENCOUNTER 2025-03-28 09:50 | Outpatient (AMB) | payer MEDICARE, SELFPAY ==
--- NOTE | 2025-03-28 10:03 | MHC.OFFVIS ---
Intake Visit Reasons: sooner appt, after fall Allergies No Known Allergies Allergy (Verified 10/26/24 16:14) HPI Comments Details: Fell in a store as her legs gave out. She was using a store cart and not her walker. No injuries. Saw her PCP. She has a history of hypertension and hyperlipidemia who has had 4 or 5 falls in the last 6 months.? Since the last fall , she has not been able to get up from a chair since last fall 10 days ago. Can't stand as long. She used to walk with a cane but kept falling, so she is now using a walker but had another fall last week while using the walker at home.? She generally tends to fall backwards.? It is not related to loss of consciousness, dizziness or lightheadedness.? The knees do not buckle.? She suddenly loses her balance and falls backwards.? It is not related to quick movements or changing direction.? She has no bladder control problems.? There is no numbness and tingling in the legs.? She's been seen in the emergency room a few times after a fall and had CAT scans.? She had 3 weeks of rehabilitation home health aide with PT and OT as well. Had a fall in the bedroom a month ago. [facility] Medical History (Updated 12/20/24 @ 13:56 by Lolly Cruz MD) Cervical myelopathy Cerebral microvascular disease Carpal tunnel syndrome Review of Systems Const Details: ?Sleep:? Difficulty getting to sleepdenies.? Difficulty maintaining sleepdenies?.? Urge to move legsdenies.? Teeth grindingdenies.? Shouting or Kicking during sleepdenies.? Abnormal behavior during sleepdenies.? Excessive sleepdenies.? Snoringdenies.? Daytime sleepinessdenies. ???General/Constitutional:? Change in appetitedenies.? Chillsdenies.? Fatiguedenies.? Feverdenies.? Weight gaindenies.? Weight lossdenies. ???Ophthalmologic:? Blurred visiondenies.? Diminished visual acuitydenies. ???ENT:? Stuffinessdenies.? Decreased hearingdenies.? Dry mouthdenies.? Ear paindenies.? Nosebleeddenies.? Ringing in the earsdenies.? Sinus paindenies.? Sore throatdenies.? Swollen glandsdenies. ???Endocrine:? Cold intolerancedenies.? Excessive thirstdenies.? Frequent urinationdenies.? Heat intolerancedenies. ???Respiratory:? Shortness of breathdenies.? Chest paindenies.? Coughdenies. ???Breast:? Breast lumpdenies.? Nipple dischargedenies. ???Cardiovascular:? Chest pain at restdenies.? Chest pain with exertiondenies.? Claudicationdenies.? Dizzinessdenies.? Fluid accumulation in the legsdenies.? Irregular heartbeatdenies.? Palpitationsdenies. ???Gastrointestinal:? Abdominal paindenies.? Constipationdenies.? Diarrheadenies.? Difficulty swallowingdenies.? Heartburndenies.? Nauseadenies.? Rectal bleedingdenies. ???Hematology:? Easy bruisingdenies.? Prolonged bleedingdenies. ???Genitourinary:? Frequent urinationdenies.? Urgencydenies.? Incontinencedenies.? Erectile Dysfunctiondenies. ???Musculoskeletal:? Neck paindenies.? Back paindenies.? Muscle achesdenies.? Painful jointsdenies.? Sciaticadenies.? Weaknessdenies. ???Podiatric:? Difficulty walkingdenies.? Foot numbnessdenies. ???Neurologic:? Difficulty swallowingdenies.? Balance difficultydenies.? Coordinationnormal.? Difficulty speakingdenies.? Dizzinessdenies.? Faintingdenies.? Gait abnormalityadmits.? Headachedenies.? Loss of strengthdenies.? Loss of use of extremitydenies.? Low back paindenies.? Memory lossdenies.? Seizuresdenies.? Ticsdenies.? Tingling/Numbnessdenies.? Transient loss of visiondenies.? Tremordenies. ???Psychiatric:? Anxietydenies.? Auditory/visual hallucinationsdenies.? Delusionsdenies.? Depressed mooddenies.? Stressorsdenies.? Substance abusedenies.? Suicidal thoughtsdenies. Physical Exam Neuro Other: Neurological: Abnormal neurological findings:??bilateral hyperreflexia in the lower extremities with equivocal extensor plantar responses Walks with a walker very slowly. Difficulty with eye movements, particularly left lateral gaze and saccades to the left.?Mental Status:??alert and oriented X 3,?Normal attention, orientation, memory and affect.?Cranial Nerves:??Pupils are equal, round and reactive to light. Fundoscopy shows normal disc bilaterally. External ocular movements are impaired as described above.?Visual escoto are full, no ptosis. Face is symmetrical, no facial weakness or droop. Facial sensations are normal. Tongue protrudes in midline. Palate elevates symmetrically. Shoulder shrugging is normal..?Motor Examination:??Normal muscle tone, bulk and strength,?No atrophy or fasciculations,?No drift of the extended upper extremities,?Deep tendon reflexes are 3+?,?Plantars are equivocal extensor.?Motor Strength:?Proximal Muscles (out of 5):5Distal Muscles (out of 5):5Neck Flexors (out of 5):5Neck Extensors (out of 5):5Deltoid (out of 5):5Biceps (out of 5):5Triceps (out of 5):5Serratus Anterior (out of 5):5Wrist Extensors (out of 5):5APB (out of 5):5Finger Spread (out of 5):5Ileopsoas (out of 5):5Quadriceps (out of 5):5Hamstrings (out of 5):5Tibialis Anterior (out of 5):5Peronei (out of 5):5EDB (out of 5):5Gastrocnemius (out of 5):5Straight Leg Raising:??90 degrees.?Sensory Exam:??Normal light touch, temperature, pinprick, vibration and joint-position sensations?,?Rhomberg sign is absent.?Coordination:??no ataxia,?no titubation,?xacqan-za-skeb, yoov-ggfa-hogx test and rapid alternating movements were normal.?Gait Exam:??as above.?Cerebellar Signs:??Avcegn-gi-nbfy and uzwb-ch-jmqq is normal,?no dysdiadochokinesia?.?Extrapyramidal System:??No tremor, rigidity with normal facial expressions,?No bradykinesia, no bradyphrenia. Normal arm swing and posture. No propulsion or retropulsion.?Speech:??Normal,?no dysphasia or dysarthria..? Mini Mental Status Exam: Level of Consciousness:??Alert.?Orientation:??Knows correct year, month, date, day and season,?Knows correct city, county and state. Knows correct location and floor.?Registration:??Able to register 3 objects.?Attention:??Serial 7's performed accurately.?Recall:??Able to recall 3 out of 3 objects.?Language:??Normal spontaneous speech, fluency, repetition,naming, comprehension, reading and writing.?Total Score:??30/30.? General Examination: GENERAL APPEARANCE:??normal,?in no acute distress.?HEAD:??normocephalic,?atraumatic.?EYES:??sclera non-icteric,?conjunctiva clear.?EARS:??auditory canal clear,?tympanic membrane intact, clear.?NOSE:??no lesions.?ORAL CAVITY:??gums normal,?mucosa moist,?no lesions.?THROAT:??clear.?NECK/THYROID:??no cervical lymphadenopathy,?thyroid normal,?neck supple, full range of motion,?no carotid bruit.?SKIN:??no rashes,?no significant birthmarks.?HEART:??S1, S2 normal,?no murmurs.?LUNGS:??clear anteriorly and posteriorly.?CHEST:??no gross rib deformity,?clear to auscultation.?BACK:??normal exam of spine.?EXTREMITIES:??no edema.?PERIPHERAL PULSES:??normal.?PSYCH:??alert, oriented,?cognitive function intact,?cooperative with exam.? Assessment & Plan Assessment & Plan (1) Cerebral microvascular disease: Comment: 02/03/24 MRI brain: Small chronic bilateral lacunar strokes in the cerebellum. Mild supratentorial white matter microvascular disease 11/29/2024 MRI of the cervical spine shows qubm-jf-grexcyjo canal stenosis at C5-6-7 without clear cord compression. There is also facet hypertrophy with foraminal encroachment at C3-4 and C7-T1 Code(s): I67.89 - Other cerebrovascular disease Category: Medical (2) Cervical myelopathy: Comment: ? Multisystem atrophy Code(s): G95.9 - Disease of spinal cord, unspecified Category: Medical Plan Exercises for marching and gait and balance . Start PT 3/ wk for 6 weeks Coding Level of Care Code Est Pt Level 4 (00208) Diagnoses Cerebral microvascular disease I67.89 Cervical myelopathy G95.9
== END 2025-03-28 10:25 | disposition home or self-care (01) ==
LOC: HO.HSM 09:51
PROVIDERS: PCP Internal Medicine; Visit Provider Psychiatry & Neurology Neurology
DX: I67.89 Other cerebrovascular disease (principal); G95.9 Disease of spinal cord, unspecified
CPT/HCPCS: 99214

== ENCOUNTER → 2025-03-28 09:50 | Outpatient (BNVA) | payer MEDICARE, SELFPAY | PROVIDERS: PCP Internal Medicine; Visit Provider Psychiatry & Neurology Neurology | DX: I67.89 Other cerebrovascular disease (principal); G95.9 Disease of spinal cord, unspecified; I10 Essential (primary) hypertension | CPT/HCPCS: 99212 ==